=== PATIENT | female | born 1990 ===

== ENCOUNTER 2024-03-15 07:16 | Inpatient (IN) | payer BC ==
[2024-03-15] MEDS: ELECTROLYTE-148 SOLN 1,000 ML IV SCH (08:00)
[2024-03-15 08:46] VITALS: BMI 34.7
[2024-03-15] MEDS: DINOPROSTONE 10 MG VAGINAL SUPPOSITORY VG ONE (09:03)
[2024-03-15 09:20] LABS: BASO % 0.3 % (0-2.0); EOS % 1.2 % (0-4.5); HEMATOCRIT 35.8 % (32.4-45.2); HEMOGLOBIN 12.4 GM/dL (10.7-15.3); LYMPH % 16.7 % (8-40); MCH 31.1 pg (25.7-33.7); MCHC 34.7 g/dl (32.0-36.0); MEAN CELL VOLUME 89.7 fl (80-96); MEAN PLT VOLUME 10.1 fl (7.5-11.1); MONO % 8.3 % (3.8-10.2); NEUT % 73.5 % (42.8-82.8); PLATELET COUNT 184 10^3/uL (134-434); RBC 3.99 M/mm3 (3.60-5.2); RDW 13.4 % (11.6-15.6); WHITE BLOOD COUNT 10.9 K/mm3 (4.0-10.0)
[2024-03-15 09:29] LABS: POTASSIUM 3.9 mmol/L (3.5-5.1)
[2024-03-15 09:30] LABS: CALCIUM 8.7 mg/dL (8.5-10.1)
[2024-03-15 09:31] LABS: BLOOD UREA NITROGEN 10.7 mg/dL (7-18)
[2024-03-15 09:34] LABS: CREATININE 0.4 mg/dL (0.55-1.3)
[2024-03-15 09:40] LABS: INR 0.93 (0.83-1.09); PROTHROMBIN TIME (PATIENT) 10.5 SEC (9.7-13.0)
[2024-03-15 09:43] LABS: ACTIVATED PTT 26.4 SECONDS (25.2-36.5)
[2024-03-15 13:48] LABS: SYPHILIS W/ RPR CONF NON-REACTIVE (NONREACTIVE)
[2024-03-15 14:17] LABS: HIV INTERPRETATION NEGATIVE (NEGATIVE)
[2024-03-15] MEDS ORDERED: FENTANYL/BUPIVACAINE/NS/PF - PCEA - 50 ML DISP.SYRIN EP ONE (16:25)
[2024-03-15] MEDS: FENTANYL/BUPIVACAINE/NS/PF - PCEA - 50 ML DISP.SYRIN EP SCH (16:40)
[2024-03-15] MEDS ORDERED: NALOXONE HCL 0.4 MG/ML VIAL IVPUSH PRN (17:32)
[2024-03-15] MEDS ORDERED: OXYTOCIN 20 UNITS in 0.9% NS 20 UNIT/1,000 ML INFUS.BAG IV ONE (17:47)
[2024-03-15] MEDS ORDERED: LIDOCAINE HCL 1% PRESERVATIVE FREE - 30ML VIAL ONE (17:47)
[2024-03-15] MEDS ORDERED: OXYTOCIN 30 UNITS in 0.9% NS 30 UNIT/500 ML INFUS.BAG IVPB ONE (18:00)
[2024-03-15] MEDS: OXYTOCIN 20 UNITS in 0.9% NS 20 UNIT/1,000 ML INFUS.BAG IV SCH (18:45)
[2024-03-15] MEDS ORDERED: WITCH HAZEL 50% (TUCKS) 40 PAD/JAR PAD TP PRN (18:52)
[2024-03-15] MEDS ORDERED: BISACODYL 10 MG SUPP.RECT RC PRN (18:52)
[2024-03-15] MEDS ORDERED: ACETAMINOPHEN 325 MG TABLET (FP) PO PRN (18:52)
[2024-03-15] MEDS ORDERED: oxyCODONE HCL 5 MG TABLET PO PRN (18:52)
[2024-03-15] MEDS ORDERED: METHYLERGONOVINE MALEATE 0.2 MG/1 ML AMP IM PRN (18:52)
[2024-03-15] MEDS ORDERED: BENZOCAINE 28 GM HEMORRHOIDAL OINTMENT TP PRN (18:52)
[2024-03-15 19:07] LABS: CORD BASE EXCESS -3.8 mmol/L (0-2); CORD BASE EXCESS -4.2 mmol/L (0-2); CORD HCO3 22.5 mmHg (20-29); CORD HCO3 25.3 mmHg (20-29); CORD PCO2 47.3 mmHg (30-78); CORD PCO2 63.1 mmHg (30-78); CORD pH 7.221 (7.14-7.44); CORD pH 7.296 (7.14-7.44)
[2024-03-15] MEDS: BENZOCAINE 20% 57 GM BOTTLE TP PRN (21:00)
[2024-03-16] MEDS: IBUPROFEN 600 MG TABLET (FP) PO PRN (01:30)
[2024-03-16 08:18] LABS: BASO % 0.2 % (0-2.0); EOS % 0.4 % (0-4.5); HEMATOCRIT 37.5 % (32.4-45.2); HEMOGLOBIN 12.6 GM/dL (10.7-15.3); LYMPH % 14.5 % (8-40); MCH 30.5 pg (25.7-33.7); MCHC 33.6 g/dl (32.0-36.0); MEAN CELL VOLUME 90.7 fl (80-96); MEAN PLT VOLUME 10.1 fl (7.5-11.1); MONO % 5.9 % (3.8-10.2); PLATELET COUNT 191 10^3/uL (134-434); RBC 4.13 M/mm3 (3.60-5.2); RDW 13.9 % (11.6-15.6); WHITE BLOOD COUNT 18.4 K/mm3 (4.0-10.0)
[2024-03-16] MEDS ORDERED: SENNOSIDES/DOCUSATE COMBO (SENNA PLUS) TABLET (UD) PO PRN (22:00)
[2024-03-17 11:21] VITALS: BP 110/71; PULSE 94; RESP 16; TEMP 98.5
== END 2024-03-17 13:40 | disposition home or self-care (01) | DRG 807 ==
LOC: JLDR 07:16 → J3W 21:15
PROVIDERS: ADMIT Obstetrics & Gynecology; ATTEND Obstetrics & Gynecology
PROC: 0W8NXZZ Division of Female Perineum, External Approach (ICD-10-PCS; principal; 2024-03-15)
PROC: 10E0XZZ Delivery of Products of Conception, External Approach (ICD-10-PCS; 2024-03-15)
DX: O24.429 Gestational diabetes mellitus in childbirth, unspecified control (principal); Z37.0 Single live birth; Z3A.39 39 weeks gestation of pregnancy
CPT/HCPCS: 36415; 36600; 59409; 80048; 82803; 82962; 85025; 85610; 85730; 86780; 86850; 86900; 86901; 87389